=== PATIENT | male | born 2005 | race African-American/Black ===

== ENCOUNTER 2024-11-12 02:04 | Emergency (ER) | payer MEDICAID ==
[~2024-11-12] VITALS: Ht 188 cm; Wt 100.0 kg
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
[2024-11-12 02:39] LABS: Basophils # (auto) 0.1 10 ^3/uL (0-0.2); Basophils % (auto) 0.6 % (0.0-2.0); Eosinophils # (auto) 0.2 10 ^3/uL (0-0.8); Eosinophils % (auto) 1.2 % (0.0-7.0); Hematocrit 42.9 % (41.0-53.0); Hemoglobin 14.6 g/dL (13.5-17.5); Lymphocytes # (auto) 3.6 10 ^3/uL (0.4-5.4); Lymphocytes % (auto) 17.5 % (10.0-50.0); Mean Corpuscular Hemoglobin 30.9 pg (28.0-32.0); Mean Corpuscular Volume 90.7 fL (80.0-100.0); Monocytes # (auto) 2.8 10 ^3/uL (0-1.3); Monocytes % (auto) 13.6 % (0.0-12.0); Neutrophils # (auto) 13.7 10 ^3/uL (1.6-8.6); Neutrophils % (auto) 67.1 % (37.0-80.0); Platelet Count (auto) 426 10^3/uL (140-450); Red Blood Cells 4.73 10^6/uL (4.5-5.90); Red Cell Distribution Width 14.1 % (11.8-14.3); White Blood Cell 20.5 10^3/uL (4.4-10.8)
[2024-11-12 02:50] LABS: Chloride 104 mmol/L (98-107); Sodium 139 mmol/L (136-145)
[2024-11-12 02:51] LABS: Anion Gap 14 (5-15); Calcium 10.4 mg/dL (8.7-10.4); Carbon Dioxide 21 mmol/L (20-31)
[2024-11-12 02:56] LABS: BUN/Creatinine Ratio 9.8 (10.0-20.0); Blood Urea Nitrogen 12 mg/dL (9-23)
[2024-11-12 02:57] LABS: Glucose 148 mg/dL (74-106); Potassium 3.3 mmol/L (3.5-5.1)
[2024-11-12 03:00] LABS: Acetaminophen < 2.0 UG/ML (10.0-20.0); Salicylate < 3.0 mg/dL (-30)
[2024-11-12] MEDS: HALOPERIDOL LACTATE 5 MG/ML INJ VIAL IM ONE (03:24)
[2024-11-12 03:43] LABS: Urine Bacteria None Seen /hpf (None Seen)
[2024-11-12 03:46] LABS: Blood Alcohol < 3.0 mg/dL (<10)
[2024-11-12 04:00] LABS: Urine Blood Negative /uL (Negative); Urine Clarity Clear (Clear); Urine Color Yellow (Yellow); Urine Hyaline Cast FEW /lpf (0 - 2); Urine Mucus FEW (None Seen); Urine Protein, UAD 1+ (Negative); Urine Specific Gravity 1.031 (1.001-1.035); Urine Squamous Epithelial Cell FEW /hpf (<5); Urine Urobilinogen 3 mg/dL (Negative); Urine WBC 3 /HPF (0-3)
[2024-11-12 04:15] LABS: Amphetamine Screen, Urine Neg (NEGATIVE); Barbiturate Scree,Urine Neg (NEGATIVE); Benzodiazephine Screen, Urine Neg (NEGATIVE); Cannabinoid Screen, Urine Pos (NEGATIVE); Cocaine Screen, Urine Neg (NEGATIVE); Opiate Scree,Urine Neg (NEGATIVE); Phencyclidine Screen, Urine Neg (NEGATIVE)
--- NOTE | 2024-11-12 07:02 | DVH ---
EXAM: CT Head Without Intravenous Contrast CLINICAL INDICATION: head injury TECHNIQUE: Axial computed tomography images of the head/brain without intravenous contrast. This CT exam was performed using one or more of the following dose reduction techniques: automated exposure control, adjustment of the mA and/or kV according to patient size, and/or use of iterative reconstru ction technique. CONTRAST: COMPARISON: None FINDINGS: BRAIN AND EXTRA-AXIAL SPACES: No acute intracranial hemorrhage, midline shift or mass effect. If sy mptoms persist, further evaluation with MRI is recommended. No significant white matter disease. BONES/JOINTS: Streak artifacts from the patient's skull. No acute fracture. SOFT TISSUES: Unremarkable. SINUSES: Mucosal thickening of the paranasal sinuses. MASTOID AIR CELLS: Unremarkable as visualized. No mastoid effusion. OTHER FINDINGS: . IMPRESSION: No acute intracranial hemorrhage, midline shift or mass effect. If symptoms persist, further evaluat ion with MRI is recommended.
[2024-11-12] MEDS: POTASSIUM EFFERVESENT TAB 25 MEQ PO ONE (07:03)
[2024-11-12 08:16] VITALS: BP 134/83; PULSE 92; RESP 18; TEMP 98; O2SAT 97
== END 2024-11-12 09:13 | disposition home or self-care (01) ==
LOC: ER 02:04 → EDBD 02:04 → ER 09:13
DX: R41.82 Altered mental status, unspecified (principal); F19.90 Other psychoactive substance use, unspecified, uncomplicated; E87.6 Hypokalemia; R73.9 Hyperglycemia, unspecified; F20.9 Schizophrenia, unspecified; Z79.899 Other long term (current) drug therapy
CPT/HCPCS: 36415; 70450; 80048; 80307; 80320; 80329; 81001; 82947; 82962; 85025